=== PATIENT | female | born 1945 | race Caucasian/White ===

== ENCOUNTER 2021-12-27 21:41 | Emergency (ER) | payer MEDICARE, SELFPAY ==
[2021-12-27 21:54] VITALS: BP 151/72; PULSE 57; RESP 18; O2SAT 98; BMI 24.4
[2021-12-27 22:00] VITALS: BP 151/72; PULSE 63; O2SAT 97
--- NOTE | 2021-12-27 22:21 | ED_ITS ---
HPI - Chest Pain General Chief Complaint: Chest Pain Stated Complaint: Chest pain Time Seen by Provider: 12/27/21 21:49 History of Present Illness HPI narrative: This 76-year-old female comes in reporting some chest pressure or discomfort in the left anterior chest that began after eating this evening. She states the pain or discomfort lasted about an hour then went away. She decided to come in here and noticed some recurrence of this pain on the way here. Currently she is not having any discomfort. She did not have any nausea, vomiting, lightheadedness, shortness of breath, or diaphoresis. Prior to this she has been in good health. She had her hip replaced 5 months ago and has been doing well since then. She states that she has good exercise tolerance. She is taking a medicine for hypercholesterolemia. She does not have any other cardiac risk factors. Related Data Home Medications Medication Instructions Recorded Confirmed pravastatin 20 mg tablet mg 12/27/21 Allergies Allergy/AdvReac Type Severity Reaction Status Date / Time codeine Allergy Verified 12/27/21 22:01 Review of Systems Status of ROS Reports: 10 or more systems reviewed and unremarkable except as noted in History and below Narrative Constitutional: No fevers, no weight gain or loss. Eyes: No discharge. No vision changes. HENT: No congestion, no sore throat, no ear pain. Cardiovascular: No palpitations. Chest discomfort as described above. Respiratory: No shortness of breath, no wheezes, no cough. Gastrointestinal: No abdominal pain, no vomiting, no diarrhea. Genitourinary: No dysuria, no hematuria. Musculoskeletal: Normal range of motion. Skin: No rashes, no pruritis. Neurological: No dizziness, weakness, sensory change, speech change. Endo/Heme/Allergies: No bruising or bleeding. No polydipsia. Pysch: no suicidality, no anxiety, no insomnia. All other systems reviewed and are negative. PFSH PFSH Social History Smoking Status: Former smoker What tobacco products do you use: cigarettes Years smoked: 30 Smoking quit date/years: >15 years ago Do you use any of these nicotine containing products: None Second hand tobacco smoke exposure: Yes How often do you have a drink containing alcohol: 4 or more times a week How many standard drinks containing alcohol do you have on a typical day: 1 or 2 How often do you have six or more drinks on one occasion: Never AUDIT-C Alcohol total score: 4 Non-prescribed substance use: denies use service: No Exam Narrative Exam Narrative: Constitutional: Well-developed, well-nourished, no acute distress. HEENT: Normocephalic, atraumatic. Neck: Normal range of motion. Nontender. Supple. Heart: Regular. No murmurs. Normal rate. Intact distal pulses. Lungs: Clear to auscultation. No chest discomfort. No reproducible chest discomfort when palpating in the left anterior chest or when taking a deep breath. No wheezes, rhonchi, or rales. Abdomen: Normal bowel sounds. Nontender. No rebound tenderness. Genitalia: Deferred. Back: No midline tenderness. Normal range of motion. Extremities: Normal range of motion. No injury. Skin: Intact. No rash. Warm. No erythema or pallor. Neurologic: No altered sensation. No weakness. Alert and oriented. Psychiatric: No suicidality. No anxiety or depression. No insomnia. Nursing notes and vitals signs are reviewed. Const Vital Signs, click to edit/add: Vital Signs - 24 hr 12/27/21 21:54 Pulse Rate [Apical] 57 L Respiratory Rate 18 Blood Pressure [Left Upper Arm] 151/72 H Pulse Oximetry 98 Oxygen Delivery Method Room Air Course Vital Signs Vital signs: Initial Vital Signs Temperature Source Temporal Artery Scan 12/27/21 21:54 Pulse Rate 57 L 12/27/21 21:54 Pulse Rhythm 12/27/21 21:54 Respiratory Rate 18 12/27/21 21:54 Blood Pressure 151/72 H 12/27/21 21:54 Blood Pressure Mean 98 12/27/21 21:54 Pulse Oximetry 98 12/27/21 21:54 Oxygen Delivery Method 12/27/21 21:54 Vital Signs Pulse Rate 57 L 12/27/21 21:54 Respiratory Rate 18 12/27/21 21:54 Blood Pressure 151/72 H 12/27/21 21:54 Pulse Oximetry 98 12/27/21 21:54 Oxygen Delivery Method 12/27/21 21:54 Pulse Rate 57 L 12/27/21 21:54 Respiratory Rate 18 12/27/21 21:54 Blood Pressure 151/72 H 12/27/21 21:54 Pulse Oximetry 98 12/27/21 21:54 Oxygen Delivery Method 12/27/21 21:54 MDM - Chest Pain MDM Narrative Medical decision making narrative: This patient comes in reporting some chest pressure as described above. She is somewhat of a poor historian and at times has difficulty understanding conversation. I do have some suspicion that there is some dementia. In any rate she did have a EKG which shows normal sinus rhythm and no sign of ST or T- wave abnormality. Initial troponin reported as 0 and a repeat troponin a couple hours later was again at 0. Other lab results are also in normal range. This is unlikely to be a cardiac cause for her symptoms. She is okay to return home and continue current plans. Lab Data Labs: Lab Results 12/27/21 12/27/21 12/27/21 Range/Units 22:15 22:15 22:15 WBC 5.21 (4.50-11.00) K/uL RBC 4.57 (4.00-5.20) m/uL Hgb 14.4 (12.0-16.0) gm/dL Hct 43.7 (33.0-51.0) % MCV 96 (80-100) fL MCH 32 (26-34) pg MCHC 33 (32-36) gm/dL RDW Coeff of Freddy 12.9 (11.5-15.5) % Plt Count 278 (140-440) K/uL Neut % (Auto) 54.6 (42.0-72.0) % Lymph % (Auto) 33.8 (20-44) % Harney % (Auto) 7.7 (0.0-11.0) % Eos % (Auto) 2.1 (0.0-7.0) % Baso % (Auto) 1.2 (0.0-3.0) % Neut # (Auto) 2.85 (1.7-7.0) K/uL Lymph # (Auto) 1.76 (0.90-2.90) K/uL Harney # (Auto) 0.40 (0.00-0.90) K/UL Eos # (Auto) 0.11 (0.00-0.50) K/uL Baso # (Auto) 0.06 (0.00-0.30) K/uL Abs Immat Gran (auto) 0.03 (0.00-0.30) K/uL Sodium 136 (135-149) mmol/L Potassium 3.0 L (3.6-5.1) mmol/L Chloride 104 (96-114) mmol/L Carbon Dioxide 23 (20-32) mmol/L BUN 9 (7-30) mg/dL Creatinine 0.7 (0.5-1.5) mg/dL Estimated Creat Clear 35.45 Estimated GFR 91 ml/min Glucose 106 (60-115) mg/dL Calcium 9.2 (8.4-10.6) mg/dL POC Troponin I 0.01 (0.01-0.04) ng/ml 12/27/21 Range/Units 23:10 WBC (4.50-11.00) K/uL RBC (4.00-5.20) m/uL Hgb (12.0-16.0) gm/dL Hct (33.0-51.0) % MCV (80-100) fL MCH (26-34) pg MCHC (32-36) gm/dL RDW Coeff of Freddy (11.5-15.5) % Plt Count (140-440) K/uL Neut % (Auto) (42.0-72.0) % Lymph % (Auto) (20-44) % Harney % (Auto) (0.0-11.0) % Eos % (Auto) (0.0-7.0) % Baso % (Auto) (0.0-3.0) % Neut # (Auto) (1.7-7.0) K/uL Lymph # (Auto) (0.90-2.90) K/uL Harney # (Auto) (0.00-0.90) K/UL Eos # (Auto) (0.00-0.50) K/uL Baso # (Auto) (0.00-0.30) K/uL Abs Immat Gran (auto) (0.00-0.30) K/uL Sodium (135-149) mmol/L Potassium (3.6-5.1) mmol/L Chloride (96-114) mmol/L Carbon Dioxide (20-32) mmol/L BUN (7-30) mg/dL Creatinine (0.5-1.5) mg/dL Estimated Creat Clear Estimated GFR ml/min Glucose (60-115) mg/dL Calcium (8.4-10.6) mg/dL POC Troponin I 0.00 L (0.01-0.04) ng/ml Discharge Plan Discharge Clinical Impression: Atypical chest pain Patient Disposition: Home, Self-Care Condition: Improved Instructions: Noncardiac Chest Pain (ED) Additional Instructions: Use [id number] medicines as needed and directed. Follow up with MD or return if worsening. Prescriptions: No Action pravastatin 20 mg tablet Follow Up/Referrals: Thomas Eid MD [Primary Care Provider] - Stand Alone Forms: [employer] Mobile Info Instructions
[2021-12-27 22:30] VITALS: BP 135/62; PULSE 55; O2SAT 97
[2021-12-27 22:34] LABS: Troponin, Point-of-Care* 0.01 ng/ml (0.01-0.04)
[2021-12-27] MEDS: ASPIRIN 81 MG TAB.CHEW 324 MG PO (22:34)
[2021-12-27 22:43] LABS: Basophils Absolute Auto 0.06 K/uL (0.00-0.30); Basophils Percent Auto 1.2 % (0.0-3.0); Chloride* 104 mmol/L (96-114); Eosinophils Absolute Auto 0.11 K/uL (0.00-0.50); Eosinophils Percent Auto 2.1 % (0.0-7.0); Hematocrit 43.7 % (33.0-51.0); Hemoglobin* 14.4 gm/dL (12.0-16.0); Immature Granulocytes Abs Auto 0.03 K/uL (0.00-0.30); Lymphocytes Absolute Auto 1.76 K/uL (0.90-2.90); Lymphocytes Percent Auto 33.8 % (20-44); Mean Corpuscular HGB Conc 33 gm/dL (32-36); Mean Corpuscular Hemoglobin 32 pg (26-34); Mean Corpuscular Volume 96 fL (80-100); Monocytes Percent Auto 7.7 % (0.0-11.0); Neutrophils Absolute Auto 2.85 K/uL (1.7-7.0); Neutrophils Percent Auto 54.6 % (42.0-72.0); Platelet Count* 278 K/uL (140-440); RDW Coefficient of Variation % 12.9 % (11.5-15.5); Red Blood Count 4.57 m/uL (4.00-5.20); Sodium* 136 mmol/L (135-149); White Blood Count* 5.21 K/uL (4.50-11.00)
[2021-12-27 22:45] LABS: Slide Review Reflex No
[2021-12-27 22:46] LABS: Carbon Dioxide* 23 mmol/L (20-32); Creatinine* 0.7 mg/dL (0.5-1.5); Est. Creatinine Clearance* 35.45; Estimated Glomerular Filt Rate 91 ml/min
[2021-12-27 22:47] LABS: Blood Urea Nitrogen* 9 mg/dL (7-30); Calcium* 9.2 mg/dL (8.4-10.6); Glucose* 106 mg/dL (60-115)
[2021-12-27 23:00] VITALS: BP 139/64; PULSE 56; O2SAT 97
== END 2021-12-27 23:29 | disposition home or self-care (01) ==
PROVIDERS: Emergency Provider Emergency Medicine Emergency Medical Services; PCP Family Medicine
DX: R07.89 Other chest pain (principal)
CPT/HCPCS: 36415; 80048; 84484; 85025; 99283; 99284; A9270

== ENCOUNTER 2022-04-10 09:26 | Outpatient (CLI) | payer MEDICARE, SELFPAY | END 2022-04-10 09:27 | disposition home or self-care (01) | LOC: INJ CL 09:26 | PROVIDERS: PCP Family Medicine; Visit Provider Family Medicine | DX: M51.36 Other intervertebral disc degeneration, lumbar region (principal); M54.16 Radiculopathy, lumbar region | CPT/HCPCS: 62323; J0702; Q9966 ==

== ENCOUNTER 2022-06-15 09:45 | Outpatient (CLI) | payer MEDICARE, SELFPAY | END 2022-06-15 09:46 | disposition home or self-care (01) | PROVIDERS: Visit Provider Family Medicine | DX: M54.16 Radiculopathy, lumbar region (principal); M51.36 Other intervertebral disc degeneration, lumbar region | CPT/HCPCS: 64483; J1100; Q9966 ==

== ENCOUNTER 2022-08-28 08:59 | Outpatient (CLI) | payer MEDICARE, SELFPAY | END 2022-08-28 09:00 | disposition home or self-care (01) | LOC: INJ CL 09:00 | PROVIDERS: PCP Family Medicine; Visit Provider Family Medicine | DX: M51.36 Other intervertebral disc degeneration, lumbar region (principal); M54.16 Radiculopathy, lumbar region | CPT/HCPCS: 62323; J0702; Q9966 ==

== ENCOUNTER 2022-12-03 14:54 | Outpatient (CLI) | payer MEDICARE, SELFPAY | END 2022-12-03 14:55 | disposition home or self-care (01) | LOC: LAB 14:57 | PROVIDERS: PCP Family Medicine; Visit Provider Orthopaedic Surgery Sports Medicine | DX: Z01.818 Encounter for other preprocedural examination (principal) | CPT/HCPCS: 36415; 86850; 86900; 86901 ==

== ENCOUNTER 2022-12-05 09:13 | Day surgery (SDC) | payer MEDICARE, SELFPAY ==
[2022-12-05] VITALS (21 sets, daily range): BP systolic 114–152; BP diastolic 55–88; PULSE 53–83; RESP 14–18; TEMP 35.7–36.7; O2SAT 88–100; BMI 22.8
[2022-12-05] MEDS: LACTATED RINGERS 1000 ML 1,000 ML 100 ML IV (09:20)
[2022-12-05] MEDS: ACETAMINOPHEN 500 MG TABLET 1000 MG PO ×2 (10:39→19:54)
[2022-12-05] MEDS: CELECOXIB 200 MG CAPSULE PO ×2 (10:40→20:50)
[2022-12-05] MEDS: OXYCODONE (CR) 10 MG TAB.ER.12H PO (10:40)
[2022-12-05] MEDS: MIDAZOLAM HCL 1 MG/ML inj IVP (11:01)
[2022-12-05] MEDS: fentaNYL 100 MCG/2 ML inj IVP (11:01)
--- NOTE | 2022-12-05 11:08 | SUR.PREOP ---
TIME?OUT:?1100 PT/RN/MDA?VERIFICATION?OF?SURGICAL?SITE,?PROCEDURE,?AND?CONSENT OBTAINED?PRIOR?TO?INVASIVE?PROCEDURE.
--- NOTE | 2022-12-05 11:15 | CRLHL7_ITS ---
For Patients: As a result of the Cures Act, medical imaging exams and procedure reports are released immediately into your electronic medical record. You may view this report before your referring provider. If you have questions, please contact your health care provider. Indication: Hip replacement surgery Technique: AP hip fluoroscopic image. Fluoroscopy time 32.9 seconds. Findings/Impression: Hardware from a left total hip arthroplasty is in satisfactory position. Dictated by Miguel Quigley MD @ 12/06/2022 8:44:00 AM (Electronically Signed)
[2022-12-05] MEDS: CEFAZOLIN 2 GM in 0.9 % SODIUM CHLORIDE Mini-bag 100 ML IVPB (11:21)
--- NOTE | 2022-12-05 11:24 | CRLHL7_ITS ---
For Patients: As a result of the Cures Act, medical imaging exams and procedure reports are released immediately into your electronic medical record. You may view this report before your referring provider. If you have questions, please contact your health care provider. Indication: Postop Technique: AP hip centered pelvis and lateral view left hip Findings/Impression: Hardware from a left total hip arthroplasty is in satisfactory position. Bone alignment is normal. No sign of acute fracture. Postop changes are within normal limits. Dictated by Miguel Quigley MD @ 12/05/2022 2:45:23 PM (Electronically Signed)
[2022-12-05] MEDS: TRANEXAMIC ACID 100 MG/ML INJ 1000 MG IV (11:26)
--- NOTE | 2022-12-05 11:30 | W.ANESCHARGE ---
Anesthesia Charges Start Date/Time Anesthesia Start Date: 12/05/22 Anesthesia Start Time: 11:08 Stop Date/Time Anesthesia Stop Date: 12/05/22 Anesthesia Stop Time: 13:56 Summary Extremes of Age - Over 70 or under 1: MDA
--- NOTE | 2022-12-05 11:30 | W.PM.NB ---
Nerve Block Nerve Block Time Seen by Provider: 11:02 Date Seen: 12/05/22 Type of block requested by surgeon for post-operative analgesia: CLIVE/LFCN Side: left Time out performed: Yes Verification of patient name: Yes Verification of date of : Yes Site marking: site marked Name of person performing procedure: Navi Continuous monitoring Was continuous monitoring of O2 sat, B/P, cardiac exercise specialist, recorded every 15 minutes?: Yes Procedure Checklist: sterile prep, needles and gloves Ultrasound guided. Images saved: Yes Medications given in 5ml increments after negative aspiration: Ropivicaine %: 0.5 mL: 30 Needle gauge: 20 Decadron (mg): 10 Precedex (mcg): 25 Patient tolerated procedure well: Yes Additional comments: Needle noted below psoas tendon needle noted adjacent to LFCN Block Charges Block Charge (with Pro Fee): Other Periph Nerve Block Use of Ultrasound Machine for Block: Yes- US Guidance/pain block
--- NOTE | 2022-12-05 12:06 | SUR.OPER ---
PATIENT QUESTIONS ANSWERED SATISFACTORILY PREOPERATIVELY.? PATIENT BROUGHT TO OR #3 PER CART AFTER ADMINISTRATION OF A BLOCK.? Patient positioned supine on OR #3 bed.? The perioperative?team supported arms bilaterally on arm boards.? Final approval of positioning by surgeon.?
--- NOTE | 2022-12-05 13:17 | PM.ORPRC ---
Procedure Note Date of procedure: 12/05/22 Procedure: PREOPERATIVE DIAGNOSIS: 1. Left hip osteoarthritis, severe, primary POSTOPERATIVE DIAGNOSIS: 1. Left hip osteoarthritis, severe, primary PROCEDURE: 1. Left total hip arthroplasty-anterior approach 2. 55270 - intraoperative fluoroscopy up to 1 hour. SURGEON: Denys Herrera MD. NUCLEAR PLANT CONSTRUCTION WORKER: María Fishman; JAME Moya - Of note, a skilled first assistant was critical for this case to aid in patient positioning, tissue retraction, limb manipulation/positioning, dislocation/relocation, patient safety, and closure. ANESTHESIA: Spinal anesthetic EBL: 150 mL IMPLANTS: DePuy J&J uncemented total hip [place] cup size 50, hole eliminator, +4 neutral liner Actis stem, high offset, size 4 +1 mm ceramic 32mm head. COMPLICATIONS: None evident INDICATIONS: The patient is a pleasant 77-year-old female who has experienced severe left hip pain and difficulty bearing weight. Workup included x-rays which revealed severe osteoarthrosis in the hip. Given the deformity, the dysfunction, and the pain, as well as the failure of nonoperative management, recommendation was made for surgery. FINDINGS: Full-thickness chondral loss broadly throughout the femoral head. Osteophytes around the femoral head/neck junction and acetabulum circumferentially noted. Small effusion upon entering the joint DESCRIPTION OF PROCEDURE: Following a thorough discussion of risks, benefits, and alternatives consent was obtained and the left hip was marked. The patient was brought to the operating room and placed supine on the operating table. Induction of anesthesia was undertaken. 1 g IV Ancef and 1 g tranexamic acid was administered within 1 hr of incision preoperatively. Proper time-out was performed identifying proper patient, site, procedure. The operative extremity was prepped and draped in the appropriate sterile fashion using ChloraPrep after the patient was positioned on the Stanley table with head in neutral alignment and all bony prominences well padded. C-arm fluoroscopic imaging was utilized to confirm proper pelvis rotation and position, and to get true AP films of both the contralateral left, and the affected left hip. This is for comparison. A longitudinal incision was made starting approximately 1 cm distal to the ASIS, and 3-4 cm lateral. The incision was extended distally aiming toward the lateral border the patella. Sharp incision through skin and bovie cautery through the subcutaneous tissue allowed identification of the TFL fascia. This was sharply divided, and the fascia bluntly released from the muscle fibers as we dissected medial. Upon coming to the medial border, we were able to retract the TFL laterally, and penetrated the deeper fascia and identify the crossing circumflex vessels. These were ligated/cauterized. The rectus was elevated from the capsule, and retractors placed laterally and medially along the femoral neck to help with visualization of the capsule. We then performed an inverted T capsulotomy. The capsule was tagged for later repair. Retractors were placed inside the capsule. The femoral neck was visualized after releasing medially down to the lesser trochanter, along the saddle laterally, and up onto the acetabulum. The femoral neck cut was made in line with our preoperative templating. The head was removed in a single piece, and sized. We turned our attention to acetabular preparation. Initially, the labrum was resected from around the perimeter, the pulvinar was excised, allowing us to visualize the false wall. We started the reaming with a 43 mm reamer. This was medialized down to the true wall. We then enlarged our reamers sequentially up to one size less than the selected cup size. We trialed at the same size and found it to have an excellent fit. The selected cup was then opened, inserted, and impacted in line with the goal of 40-45? of abduction, and 20-25? of anteversion. This was confirmed on C-arm fluoroscopic imaging to be in the appropriate/goal position. Once the cup was placed we placed a hole eliminator and a liner consistent with preop planning. Attention was turned to the femoral preparation. The limb was extended, externally rotated, and adducted. The posteromedial capsule was released, as retractors were placed allowing excellent access to the proximal femur. Initially a gambling box person was followed by canal finder followed by various broaches. We broached sequentially up to size noted above, found it to have excellent rotational control, and trialing various heads and necks, revealed that appropriate neck offset, and the above noted head size provided the greatest stability, and zoroastrianism of length, and offset. C-arm fluoroscopic imaging confirmed position of the stem, as well as leg lengths, which were compared with the pre procedure all fluoroscopic images. Trial implants were removed, the real femoral stem inserted, as was the ceramic head. After reducing, the leg was placed through range of motion and stability was confirmed anterior, posterior, and lateral. A 3 min Betadine soak was then performed, and thorough irrigation with normal saline followed. Closure of the capsule was performed with #1 PDS. Bleeding was confirmed to be controlled at this stage, and the TFL fascia was closed with #0 strata fix. Subcutaneous, and subcuticular closure was performed with 2-0 Vicryl and 4-0 Monocryl, respectively. Dressings were applied, and the patient was awoken from anesthesia and transferred the PACU in stable condition. A skilled first assistant was critical for this case to aid in patient positioning, tissue retraction, proximal femur exposure, limb manipulation/positioning, dislocation/relocation, patient safety, and closure. PLAN: 1. Weight bear as tolerated operative extremity. 2. 23 hr perioperative antibiotics. 3. Ice. 4. PT/OT consults for ambulation assistance/mobility education. 5. Social work consult for discharge planning. 6. DVT prophylaxis with at SCDs, Toño Hose, and Xarelto x5 days followed by aspirin for a total of 1 month..
--- NOTE | 2022-12-05 14:03 | W.ANESCHARGE ---
Anesthesia Charges Start Date/Time Anesthesia Start Date: 12/05/22 Anesthesia Start Time: 11:08 Stop Date/Time Anesthesia Stop Date: 12/05/22 Anesthesia Stop Time: 13:56
[2022-12-05] MEDS: HYDROmorphone 0.5 mg/0.5 ml inj IVP (14:40)
--- NOTE | 2022-12-05 15:01 | P.IMCN_ITS ---
Date of Consult Consult date: 12/05/22 Primary Care Provider: Hal Penny MD Consult Narrative Reason for consult: Medical management of comorbidities Narrative: Lucy Garcia is a 77 year old female who presented to the hospital today for an elective L ROBERTA. There were no surgical or anesthetic complications noted during procedure. Patient's H&P reviewed, PCP is Dr. Ortez at the [facility]. Past medical history significant for: hyperlipidemia, essential HTN History of blood clots: YES, had a postoperative PE 30-40 years ago after a tubal ligation. No complications after R ROBERTA in 2021. Postoperative plan: Home with in [place] Review of Systems Status of ROS: Reports: 10 or more systems reviewed and unremarkable except as noted in History and below PFSH [facility] Medical History (Updated 12/05/22 @ 15:09 by Chloe He MD) History of pulmonary embolism ?Z86.711 - Personal history of pulmonary embolism (ICD-10) Hyperlipidemia ?E78.5 - Hyperlipidemia, unspecified (ICD-10) Hypertension ?I10 - Essential (primary) hypertension (ICD-10) Surgical History (Updated 12/05/22 @ 15:10 by Chloe He MD) Hx of tubal ligation ?Z98.51 - Tubal ligation status (ICD-10) Hx of appendectomy ?Z90.49 - Acquired absence of other specified parts of digestive tract (ICD- 10) Status post total hip replacement, 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) ?Z96.641 - Presence of right artificial hip joint (ICD-10) Family History (Updated 11/28/22 @ 10:20 by Ml Alvarado RN) Mother Asthma Father Colon cancer Brother High blood pressure Social History Smoking Status: Former smoker What tobacco products do you use: cigarettes Years smoked: 30 Smoking quit date/years: >15 years ago Do you use any of these nicotine containing products: None Second hand tobacco smoke exposure: Yes How often do you have a drink containing alcohol: 4 or more times a week Alcohol type: wine and hard liquor How many standard drinks containing alcohol do you have on a typical day: 1 or 2 How often do you have six or more drinks on one occasion: Never AUDIT-C Alcohol total score: 4 Non-prescribed substance use: denies use Caffeine: No service: No Meds Home Medications and Allergies Home Medications Medication Instructions Recorded Confirmed Type pravastatin 20 mg tablet 20 mg PO HS 12/27/21 12/05/22 History amlodipine 5 mg tablet (Norvasc) 5 mg PO DAILY 12/04/22 12/05/22 History tizanidine 4 mg capsule (Zanaflex) 4 mg PO Q6H PRN 12/04/22 12/05/22 History Allergies Allergy/AdvReac Type Severity Reaction Status Date / Time codeine AdvReac Severe Drowsy Verified 12/05/22 09:27 Exam Narrative: Exam Narrative: GEN: Resting comfortably in bed, nontoxic HEENT: EOMIs bilaterally, no scleral icterus CV: RRR, No concerning murmurs, rubs, or gallops R: LCTA bilaterally without concerning wheezing, air movement adequate Skin: No concerning skin lesions or rashes on exposed skin Neuro: Nonfocal Psych: Appropriate Const: Vital Signs, click to edit/add: Vital Signs - 24 hr 12/05/22 09:44 12/05/22 11:00 12/05/22 11:05 Temperature 98.0 F 98.0 F Pulse Rate 58 L 53 L 55 L Respiratory Rate 16 16 16 Blood Pressure 152/68 H 135/55 L 114/88 Pulse Oximetry 100 100 100 Oxygen Delivery Me thod Room Air Nasal Cannula Nasal Cannula Oxygen Flow Rate 2 2 12/05/22 13:51 12/05/22 13:55 12/05/22 14:00 Temperature 97.2 F L Pulse Rate 54 L 61 59 L Respiratory Rate 16 16 18 Blood Pressure 118/64 120/59 L 134/65 Pulse Oximetry 94 95 96 Oxygen Delivery Me thod Room Air Room Air Room Air Oxygen Flow Rate 12/05/22 14:05 12/05/22 14:10 12/05/22 14:20 Temperature 97.3 F L Pulse Rate 59 L 59 L 54 L Respiratory Rate 16 14 14 Blood Pressure 137/68 131/69 135/66 Pulse Oximetry 95 95 95 Oxygen Delivery Me thod Room Air Room Air Room Air Oxygen Flow Rate 2 12/05/22 14:26 Temperature 97.4 F L Pulse Rate 56 L Respiratory Rate 14 Blood Pressure 121/62 Pulse Oximetry 96 Oxygen Delivery Me thod Room Air Oxygen Flow Rate Assessment and Plan Assessment and plan (1) History of left hip replacement: Problem comment: - Dr. Herrera, 12/05/22 Status: Acute Plan - pain management per orthopedic surgery team; will discuss a longer course of Xarelto given PE history - continue home medications for comorbidities - anticipate routine postoperative course
[2022-12-05] MEDS: ONDANSETRON 2 MG/ML inj 4 MG IVP ×2 (15:23→19:54)
[2022-12-05] MEDS: CEFAZOLIN 1 GM in 0.9 % SODIUM CHLORIDE Mini-bag 100 ML IVPB (17:15)
[2022-12-05] MEDS: OXYCODONE 5 MG TABLET PO (17:15)
[2022-12-05] MEDS: MAG HYDROX/ALUMINUM HYD/SIMETH 30 ML ORAL.SUSP PO (17:58)
[2022-12-05] MEDS: hydrOXYzine pamoate 25 MG CAPSULE PO (18:59)
--- NOTE | 2022-12-05 19:25 | PC.NURSE ---
PATIENT RETURNED FROM SURGERY AT 1430 WITH PAIN TO LEFT HIP 03/05. DILAUDID ADMINISTERED. PATIENT'S O2 SATS DECREASED TO 87-88%RA AND 2L O2 PER NC PLACED AND MD UPDATED. ADMINISTERED ZOFRAN FOR NAUSEA. NAUSEA CURRENTLY RESOLVED BUT PATIENT DOES REPORT HEARTBURN. MAALOX ADMINISTERED WITH NO RELIEF. DR. CROWELL UPDATED AND ORDER OBTAINED FOR TUMS AND PEPCID. PATIENT ALSO REPORTS HEADACHE AND ICE PACK APPLIED TO NECK AND VISTARIL ADMINISTERED.
[2022-12-05] MEDS: FAMOTIDINE 20 MG TABLET PO (19:30)
[2022-12-05] MEDS: CALCIUM CARBONATE 500 MG CHEW PO (19:30)
[2022-12-05] MEDS: SENNOSIDES 1 TAB TABLET 2 TAB PO (20:50)
[2022-12-05] MEDS: LORazepam 0.5 MG TABLET PO (22:37)
[2022-12-06] MEDS: ACETAMINOPHEN 500 MG TABLET 1000 MG PO ×2 (01:41→08:38)
[2022-12-06] MEDS: CEFAZOLIN 1 GM in 0.9 % SODIUM CHLORIDE Mini-bag 100 ML IVPB (01:41)
[2022-12-06 03:00] VITALS: PULSE 63; RESP 18; TEMP 36.6; O2SAT 91
[2022-12-06 06:30] LABS: HCO3 VBG 26 mmol/L (21-28); PCO2 VBG 43 mmHG (40-50); PO2 VBG 36.6 mmHG (25-47); pH VBG 7.394 (7.32-7.43)
--- NOTE | 2022-12-06 06:32 | PC.NURSE ---
19-07: pleasant and cooperative. Pivot to BSC as pt was nauseated, Zofran given, Q-eazy patch on gown, and cool compress to forehead. States her nausea has resolved this AM. PRN Ativan given at HS as a sleep aid, pt was able to rest throughout the night. No c/o pain, ticket writer recommended Oxy prior to working with PT/OT, pt onboard with plan. VSS. RA throughout shift. Dressing to hip CDI, active ice on. ?
[2022-12-06 06:34] LABS: Basophils Absolute Auto 0.01 K/uL (0.00-0.30); Basophils Percent Auto 0.1 % (0.0-3.0); Hemoglobin* 12.4 gm/dL (12.0-16.0); Immature Granulocytes Abs Auto 0.01 K/uL (0.00-0.30); Immature Granulocytes Pct Auto 0.1 %; Lymphocytes Percent Auto 7.5 % (20-44); Mean Corpuscular HGB Conc 33 gm/dL (32-36); Mean Corpuscular Hemoglobin 31 pg (26-34); Mean Corpuscular Volume 96 fL (80-100); Monocytes Percent Auto 6.6 % (0.0-11.0); Neutrophils Percent Auto 85.7 % (42.0-72.0); Platelet Count* 342 K/uL (140-440); RDW Coefficient of Variation % 13.7 % (11.5-15.5); Red Blood Count 3.95 m/uL (4.00-5.20); White Blood Count* 8.77 K/uL (4.50-11.00)
[2022-12-06 06:38] LABS: Slide Review Reflex No
[2022-12-06 06:46] LABS: Sodium* 138 mmol/L (135-149)
[2022-12-06 06:47] LABS: Potassium* 4.1 mmol/L (3.6-5.1)
[2022-12-06 06:49] LABS: Creatinine* 0.7 mg/dL (0.5-1.5); Est. Creatinine Clearance* 40.21; Estimated Glomerular Filt Rate 90 ml/min
[2022-12-06 06:50] LABS: Blood Urea Nitrogen* 19 mg/dL (7-30)
[2022-12-06 07:00] VITALS: BP 123/60; PULSE 63; PULSE 67; RESP 18; TEMP 36.2; O2SAT 94; O2SAT 95
[2022-12-06] MEDS: SENNOSIDES 1 TAB TABLET 2 TAB PO (08:38)
[2022-12-06] MEDS: RIVAROXABAN 10 MG TABLET PO (08:38)
[2022-12-06] MEDS: CELECOXIB 200 MG CAPSULE PO (08:39)
[2022-12-06] MEDS: OXYCODONE 5 MG TABLET PO (08:39)
--- NOTE | 2022-12-06 10:53 | PC.SOCIAL ---
Per therapy, pt is moving around well and will discharge to home. Pt has assistance from pt's spouse during recovery at home. Pt has outpatient therapy scheduled. There are no identified social work needs.
--- NOTE | 2022-12-06 11:05 | PC.NURSE ---
AVS reviewed. PIV removed. Patient vitally stable. All concerns addressed. Patient discharged to home with .
--- NOTE | 2022-12-06 11:29 | P.ORPN_ITS ---
Subjective Subjective Date Seen: 12/06/22 Interval history: She describes some heartburn overnight. Otherwise, no shortness of breath. No chest pain. Feels like her hip pain has been manageable. Ortho Exam Narrative Exam Narrative: Left hip dressing remains intact and clean. Mild swelling around the thigh as be expected. Neurologically intact distally in the superficial and deep peroneal as well as plantar distribution. 2+ DP pulse. Resting in bed comfortably today and is cooperative with the exam. Const Vital Signs, click to edit/add: Vital Signs - 24 hr 12/05/22 13:51 12/05/22 13:55 12/05/22 14:00 Temperature 97.2 F L Pulse Rate 54 L 61 59 L Pulse Rate [Apical] Respiratory Rate 16 16 18 Blood Pressure 118/64 120/59 L 134/65 Blood Pressure [Right Arm] Pulse Oximetry 94 95 96 Oxygen Delivery Method Room Air Room Air Room Air Oxygen Flow Rate 12/05/22 14:05 12/05/22 14:10 12/05/22 14:20 Temperature 97.3 F L Pulse Rate 59 L 59 L 54 L Pulse Rate [Apical] Respiratory Rate 16 14 14 Blood Pressure 137/68 131/69 135/66 Blood Pressure [Right Arm] Pulse Oximetry 95 95 95 Oxygen Delivery Method Room Air Room Air Room Air Oxygen Flow Rate 2 12/05/22 14:26 12/05/22 14:33 12/05/22 14:45 Temperature 97.4 F L 96.5 F L 96.9 F L Pulse Rate 56 L 55 L Pulse Rate [Apical] 64 Respiratory Rate 14 16 16 Blood Pressure 121/62 Blood Pressure [Right Arm] 134/60 129/60 Pulse Oximetry 96 94 Oxygen Delivery Method Room Air Room Air Room Air Oxygen Flow Rate 12/05/22 15:00 12/05/22 15:15 12/05/22 15:30 Temperature 96.9 F L 96.7 F L Pulse Rate Pulse Rate [Apical] 63 65 68 Respiratory Rate 16 16 16 Blood Pressure Blood Pressure [Right Arm] 129/69 130/64 121/76 Pulse Oximetry 95 93 88 Oxygen Delivery Method Room Air Room Air Room Air Oxygen Flow Rate 12/05/22 16:00 12/05/22 16:30 12/05/22 17:30 Temperature 96.8 F L 96.9 F L Pulse Rate Pulse Rate [Apical] 64 71 70 Respiratory Rate 16 16 16 Blood Pressure Blood Pressure [Right Arm] 119/58 L 119/66 127/72 Pulse Oximetry 96 97 97 Oxygen Delivery Method Nasal Cannula Room Air Room Air Oxygen Flow Rate 2 2 2 12/05/22 18:30 12/05/22 19:30 12/05/22 23:00 Temperature 96.3 F L Pulse Rate Pulse Rate [Apical] 70 83 Respiratory Rate 16 18 18 Blood Pressure Blood Pressure [Right Arm] 132/70 135/74 Pulse Oximetry 96 96 Oxygen Delivery Method Room Air Room Air Oxygen Flow Rate 1 12/05/22 23:00 12/05/22 23:00 12/06/22 03:00 Temperature 97.8 F Pulse Rate Pulse Rate [Apical] 75 63 Respiratory Rate 18 18 18 Blood Pressure Blood Pressure [Right Arm] 132/61 Pulse Oximetry 95 95 91 Oxygen Delivery Method Room Air Room Air Room Air Oxygen Flow Rate 12/06/22 07:00 12/06/22 07:00 12/06/22 07:00 Temperature 97.2 F L Pulse Rate Pulse Rate [Apical] 63 67 Respiratory Rate 18 18 Blood Pressure Blood Pressure [Right Arm] 123/60 Pulse Oximetry 95 94 Oxygen Delivery Method Room Air Room Air Oxygen Flow Rate Assessment and Plan Assessment and plan (1) History of left hip replacement: Problem details: - Dr. Herrera, 12/05/22 Status: Acute Plan The plan for her to be discharged today is still appropriate. Analgesics p.r.n.. Therapy will work with the patient before she leaves today to help navigate stairs and help manage a walker use. Xarelto x5 days followed by baby aspirin b.i.d. thereafter was the DVT prophylactic regimen following her prior ROBERTA within the last 2 years. We will p jaylin for the same regimen now.
== END 2022-12-06 10:50 | disposition home or self-care (01) ==
LOC: OR 09:13 → MEDSURG 09:16
PROVIDERS: Family Medicine; PCP Family Medicine; Visit Provider Orthopaedic Surgery Sports Medicine
PROC: (CPT 27130; principal; 2022-12-05 11:15)
DX: M16.12 Unilateral primary osteoarthritis, left hip (principal); G89.18 Other acute postprocedural pain; I10 Essential (primary) hypertension; E78.5 Hyperlipidemia, unspecified; Z86.711 Personal history of pulmonary embolism
CPT/HCPCS: 27130; 01214; 36415; 64450; 73501; 76942; 82565; 82803; 84132; 84295; 84520; 85025; 97110; 97116; 97161; 97165; 99100; A9270; C1776; J0690; J1100; J1170; J2250; J2405; J2704; J2795; J3010; J7120

== ENCOUNTER 2023-01-11 15:30 | Outpatient (RCR) | payer MEDICARE, SELFPAY | END 2023-01-24 10:38 | disposition home or self-care (01) | PROVIDERS: PCP Family Medicine; Visit Provider Orthopaedic Surgery Sports Medicine | DX: M16.12 Unilateral primary osteoarthritis, left hip (principal); Z96.642 Presence of left artificial hip joint; R26.89 Other abnormalities of gait and mobility; M25.552 Pain in left hip; Z51.89 Encounter for other specified aftercare | CPT/HCPCS: 97110; 97140; 97161; 97164; 97535 ==

== ENCOUNTER 2023-04-09 10:49 | Outpatient (CLI) | payer MEDICARE, SELFPAY | END 2023-04-09 10:50 | disposition home or self-care (01) | LOC: INJ CL 10:50 | PROVIDERS: PCP Family Medicine; Visit Provider Family Medicine | DX: M51.36 Other intervertebral disc degeneration, lumbar region (principal); M54.16 Radiculopathy, lumbar region | CPT/HCPCS: 62323; J0702; Q9966 ==

== ENCOUNTER 2023-09-10 09:03 | Outpatient (CLI) | payer MEDICARE, SELFPAY | END 2023-09-10 09:04 | disposition home or self-care (01) | LOC: INJ CL 09:04 | PROVIDERS: PCP Family Medicine; Visit Provider Family Medicine | DX: M51.36 Other intervertebral disc degeneration, lumbar region (principal); M54.16 Radiculopathy, lumbar region | CPT/HCPCS: 62323; J0702; Q9966 ==

== ENCOUNTER 2023-10-29 10:08 | Outpatient (CLI) | payer MEDICARE, SELFPAY | END 2023-10-29 10:09 | disposition home or self-care (01) | LOC: INJ CL 10:10 | PROVIDERS: Visit Provider Family Medicine | DX: M47.816 Spondylosis without myelopathy or radiculopathy, lumbar region (principal) | CPT/HCPCS: 64493; 64494; J0702; Q9966 ==

== ENCOUNTER 2024-03-31 09:14 | Outpatient (CLI) | payer MEDICARE, SELFPAY | END 2024-03-31 09:15 | disposition home or self-care (01) | LOC: INJ CL 09:15 | PROVIDERS: Visit Provider Family Medicine | DX: M47.816 Spondylosis without myelopathy or radiculopathy, lumbar region (principal) | CPT/HCPCS: 64493; 64494; J0702; Q9966 ==

== ENCOUNTER 2024-08-04 13:08 | Outpatient (CLI) | payer MEDICARE, SELFPAY | END 2024-08-04 13:09 | disposition home or self-care (01) | LOC: INJ CL 13:11 | PROVIDERS: Visit Provider Family Medicine | DX: M47.816 Spondylosis without myelopathy or radiculopathy, lumbar region (principal) | CPT/HCPCS: 64493; 64494; J0702; Q9966 ==

== ENCOUNTER 2025-01-19 12:47 | Outpatient (CLI) | payer MEDICARE, SELFPAY | END 2025-01-19 12:48 | disposition home or self-care (01) | LOC: INJ CL 12:49 | PROVIDERS: PCP Family Medicine; Visit Provider Family Medicine | DX: M47.816 Spondylosis without myelopathy or radiculopathy, lumbar region (principal) | CPT/HCPCS: 64493; 64494; Q9966 ==